=== PATIENT | female | born 1980 | race American Indian/Alaskan Native ===

== ENCOUNTER 2023-12-28 00:12 | Emergency (ER) | payer MEDICAID, OTHER ==
[2023-12-28 01:04] LABS: EOSINOPHILS PERCENT AUTO 2.5 % (1.0-3.0); HEMATOCRIT 23.8 % (37.0-47.0); HEMOGLOBIN 7.3 g/dL (12.0-16.0); LYMPHOCYTES PERCENT AUTO 10.8 % (20.5-50.1); MEAN CORPUSCULAR HEMOGLOBIN 23.2 pg (27.0-34.0); MEAN CORPUSCULAR HGB CONC 30.7 g/dL (33.0-35.0); MEAN CORPUSCULAR VOLUME 75.8 fL (80-100); MONOCYTES PERCENT AUTO 9.5 % (2-8); NEUTROPHILS PERCENT AUTO 77.2 % (42.2-75.2); PLATELET COUNT,PLT 567 10^3/uL (150-450); RED BLOOD CELL COUNT 3.14 10^6/uL (4.2-5.4); WHITE BLOOD CELL COUNT,WBC 12.2 10^3/uL (5.0-10.0)
[2023-12-28 01:13] LABS: ALANINE AMINOTRANSFERASE,ALT 18 U/L (14-59); ALBUMIN 1.5 g/dL (3.4-5.0); ALKALINE PHOSPHATASE 177 U/L (46-116); ANION GAP 8.9 mEq/L (7-13); ASPARTATE AMNIOTRANSFERASE,AST 29 U/L (15-37); BILIRUBIN TOTAL 0.2 mg/dL (0.2-1.0); BLOOD UREA NITROGEN,BUN 12 mg/dL (7-18); BUN/CREATININE RATIO 12.4 (No establ ref range); CALCIUM 8.1 mg/dL (8.5-10.1); CHLORIDE,CL 104 mmol/L (98-107); CREATININE 0.97 mg/dL (0.55-1.02); POTASSIUM,K 2.9 mmol/L (3.5-5.1); PROTEIN TOTAL,TP 8.6 g/dL (6.4-8.2); SODIUM,NA 136 mmol/L (136-145)
[2023-12-28 01:20] LABS: CARBON DIOXIDE,CO2 26 mmol/L (21-32); GLUCOSE RANDOM 114 mg/dL (70-99)
[2023-12-28 01:24] LABS: A/G RATIO 0.21; ESTIMATED GFR 73 mL/min (>=60)
[2023-12-28] MEDS: Potassium Chloride 10 MEQ Tab.ER PO ONE (01:29)
[2023-12-28] MEDS: Doxycycline Monohydrate 100 MG Cap PO ONE (01:35)
== END 2023-12-28 01:46 | disposition home or self-care (01) ==
LOC: DL.ED 00:12
DX: J18.9 Pneumonia, unspecified organism (principal); E87.6 Hypokalemia; D64.9 Anemia, unspecified
CPT/HCPCS: 36415; 71046; 80053; 85025; 99284; 99285; A9270